=== PATIENT | male | born 1965 | race Caucasian/White ===

== ENCOUNTER 2017-02-12 01:34 | Emergency (ER) | payer OTHER ==
[~2017-02-12] VITALS: Ht 182.9 cm; Wt 117.9 kg
[~2017-02-12 01:34] MED LIST: CELEXA10 MG PO; CIPRO500 MG PO; COLACE100 MG PO; DEPAKOTE125 MG PO; FLOMAX0.4 MG PO; MOTRIN400 MG PO; MULTI-VITAMIN1 EAC4 PO; RISPERDAL1 MG PO; TYLENOL WITH C1 EACH PO
[2017-02-12] MEDS ORDERED: BACLOFEN20 MG PO (01:41)
[2017-02-12] MEDS ORDERED: DIPHENHYDRAMINE50 M1 PO (01:42)
[2017-02-12] MEDS ORDERED: NAPROXEN500 MG PO (01:44)
[2017-02-12] MEDS ORDERED: TYLENOL REGULA325 MG PO (01:44)
[2017-02-12] MEDS ORDERED: CHEWABLE-VITE1 EACH PO (01:45)
[2017-02-12] MEDS ORDERED: ZANTAC150 MG PO (01:45)
[2017-02-12] MEDS ORDERED: FLOMAX0.4 MG PO (01:45)
[2017-02-12] MEDS ORDERED: RISPERDAL2 MG PO (01:46)
[2017-02-12 03:14] LABS: HEMATOCRIT 36.6 % (38.0-50.0); MCH 28.2 PG (29.0-34.0); MCHC 33.1 G/DL (30.0-36.0); MCV 85.3 FL (86-99); MEAN PLAT.VOLUME 9.3 uM^3 (9.0-12.4); PLATELET COUNT 306 K/uL (156-360); RBC DIS.WIDTH-CV 13.2 % (11.8-14.6); RBC DIS.WIDTH-SD 41.4 % (39-53); RED BLOOD COUNT 4.29 M/uL (4.00-5.50); WHITE BLOOD COUNT 9.1 K/uL (4.1-10.2)
[2017-02-12 03:24] LABS: CHLORIDE 108 mEq/L (99-109); POTASSIUM 3.8 mEq/L (3.7-5.4); SODIUM 139 mEq/L (136-147)
[2017-02-12 03:26] LABS: GLUCOSE 114 mg/dL (70-99)
[2017-02-12 03:28] LABS: ANION GAP 10 MEQ/L (2-14); TOTAL BILIRUBIN 0.3 mg/dL (0.0-1.0)
[2017-02-12 03:30] LABS: ALKALINE PHOSPHATASE 60 IU/L (3-129); GFR ESTIMATE (CALCULATED) > 59 mL/min/
[2017-02-12 03:31] LABS: UREA NITROGEN (BUN) 12 mg/dL (9-23)
[2017-02-12 03:33] LABS: LIPASE 30 U/L (1.0-51.0)
[2017-02-12 06:37] LABS: ADD MIUA? YES; BILIRUBIN NEGATIVE; BLOOD MODERATE; COLOR YELLOW ((YELLOW)); GLUCOSE (STRIP) NEGATIVE; KETONES NEGATIVE; LEUKOCYTES LARGE; NITRITE NEGATIVE; PROTEIN (STRIP) 100; SPECIFIC GRAVITY 1.012 (1.000-1.030); UROBILINOGEN 0.2 MG/DL (0.2-1.0)
[2017-02-12 06:51] LABS: BACTERIA 3+ /HPF; BUDDING YEAST 4+; CALCIUM OXALATE CRYSTALS 3+ /HPF; EPITHELIAL CELLS RARE /HPF; MUCUS TRACE /LPF; RED BLOOD CELLS TNTC /HPF (0-5); UCUL ADDED? YES; WHITE BLOOD CELLS TNTC /HPF (0-5)
[2017-02-12 14:37] VITALS: BP 138/97
== END 2017-02-12 14:38 ==
LOC: EME → EDBD 01:34 → EME 14:38
PROVIDERS: Emergency Medicine
PROC: 0T25X0Z Change Drainage Device in Kidney, External Approach (ICD-10-PCS; principal; 2017-02-12)
DX: N99.522 Malfunction of incontinent external stoma of urinary tract (principal); N13.2 Hydronephrosis with renal and ureteral calculous obstruction; N12 Tubulo-interstitial nephritis, not specified as acute or chronic; Z87.442 Personal history of urinary calculi
CPT/HCPCS: 50435; 71010; 74176; 80053; 81003; 83690; 85027; 87077; 87086; 87186; 93005; 99281; 99285; C1769